=== PATIENT | male | born 1995 | race African-American/Black ===

== ENCOUNTER 2024-10-10 12:23 | Emergency (ER) | payer OTHER, SELFPAY ==
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
--- OUTSIDE RECORDS SUMMARY | 2024-10-10 12:25 | XMS_ITS | Clinical Summary ---
Author Organization [address] lto Address [address] [place] [address] Care Team Providers Care Certified Art Therapist Name Role Phone Abner Lobo MD Primary Care Provider [phone] Allergies Active Allergy Reactions Criticality Noted Date Comments Erythromycin Medications DULoxetine (CYMBALTA) 30 mg capsuleIndicati ons:Anxiety Take 1 capsule (30 mg total) by mouth daily 30 capsule 2 10/07/2019 Active Active Problems No known active problems Immunizations Immunization Administration Dates Next Due Influenza, Unspecified 05/22/2019(Deferr ed: Patient Refused),05/22/2018(Deferred: Patient Refused) Family History Medical History Relation Name Comments Cancer Mother Hypertension Mother Relation Name Status Comments Mother Alive Social History Tobacco Use Types Packs/Day Years Used Date Smoking Tobacco: Every Day Cigarettes Smokeless Tobacco: Never Comments:1/2 a pack a week Alcohol Use Standard Drinks/Week Comments Not Currently 0 (1 standard drink = 0.6 oz pur e alcohol) PHQ-2 Answer Date Recorded PHQ-2 Total Score (If total score is 3 or more points, staff should administer the PHQ-9) 0 10/07/2019 Personal Safety Answer Date Recorded Getting School Help Needed Not on file 07/16 Sex and Gender Information Value Date Recorded Sex Assigned at Not on file 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 Gender Identity Not on file Sexual Orientation Not on file Obstetrics History Last Filed Vital Signs Vital Sign Reading Time Taken Comments Blood Pressure 122/64 10/10/2023 2:41 PM CDT Pulse 76 10/10/2023 2:41 PM CDT Temperature 37.2 C (98.9 F) 10/10/2023 2:41 PM CDT Respiratory Rate 16 10/10/2023 2:41 PM CDT Oxygen Saturation 98% 10/10/2023 2:41 PM CDT Inhaled Oxygen Concentration - - Weight 64 kg (141 lb) 10/10/2023 2:41 PM CDT Height 182.9 cm (6') 10/10/2023 2:41 PM CDT Body Mass Index 19.12 10/10/2023 2:41 PM CDT Plan of Treatment Health Maintenance Due Date Last Done Comments Hepatitis C Screening 1995 DTaP/Tdap/Td Vaccine (6 - Tdap) 05/04/2007 05/03/2007, 01/26/2001, 08/05/1996, Additional history exists Pneumococcal vaccine <65 (1 of 2 - PCV) 2014 Depression Screening 10/06/2020 10/07/2019 Regular Well Visit/Exam 18-64 10/06/2020 10/07/2019 Influenza Vaccine (Season Ended) 2025 03/04/2008, 05/03/2007, 03/19/2004 Hepatitis B Screening Completed 1995 , 1995, 1995 Varicella Vaccines Discontinued 12/09/2008, 04/25/1996 HPV Vaccines Aged Out No longer eligi ble based on patient's age to complete this topic Insurance [facility] CHOICE PLUS [facility] [id number] Care Teams Certified Art Therapist Relationship Specialty Start Date End Date Abner Lobo MD [address] [place] [address] PCP - General Family Medicine 10/07/19
--- OUTSIDE RECORDS SUMMARY | 2024-10-10 12:25 | XMS_ITS | Referral Summary ---
Author Organization [address] lto Address [address] [place] [address] Care Team Providers Care Instrumentation Instructor Name Role Phone Abner Lobo MD Primary Care Provider [phone] Allergies Active Allergy Reactions Criticality Noted Date Comments Erythromycin Medications DULoxetine (CYMBALTA) 30 mg capsuleIndicati ons:Anxiety Take 1 capsule (30 mg total) by mouth daily 30 capsule 2 10/07/2019 Active Active Problems No known active problems Immunizations Immunization Administration Dates Next Due Influenza, Unspecified 05/22/2019(Deferr ed: Patient Refused),05/22/2018(Deferred: Patient Refused) Social History Tobacco Use Types Packs/Day Years [...] on file 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
--- OUTSIDE RECORDS SUMMARY | 2024-10-10 12:25 | XMS_ITS | Clinical Summary ---
Author Organization [facility] Address [address] [place] [address] Phone Care Team Providers Care Granulator Operator Name Role Phone Provider, None Primary Care Provider Unavailabl e Allergies Active Allergy Reactions Criticality Noted Date Comments Erythromycin Hives 07/15/2024 Medications No known medications Encounters Date Type Department Care Team Description 07/15/2024 10:24 PM CHIEF DIETITIAN - 07/16/2024 1:45 AM CHIEF DIETITIAN [facility] [address] [place] [address] Abner Pickering MD Right ankle sprain Discharge Disposition: Discharged to home or Selfcare 07/15/2024 Travel from Last 3 Months Social History Tobacco Use Types Packs/Day Years Used Date Smoking Tobacco: Never Assessed Sex and Gender Information Value Date Recorded Sex Assigned at Not on file Legal Sex Male 9:19 PM CDT Gender Identity Not on file Sexual Orientation Not on file Last Filed Vital Signs Vital Sign Reading Time Taken Comments Blood Pressure 131/78 07/16/2024 1:30 AM CHIEF DIETITIAN Pulse 103 07/15/2024 10:28 PM CHIEF DIETITIAN Temperature 36.6 C (97.8 F) 07/15/2024 10:30 PM CHIEF DIETITIAN Respiratory Rate 17 07/15/2024 10:30 PM CHIEF DIETITIAN Oxygen Saturation 98% 07/15/2024 10:28 PM CHIEF DIETITIAN Inhaled Oxygen Concentration - - Weight 67.1 kg (148 lb) 07/15/2024 10:30 PM CHIEF DIETITIAN Height 182.9 cm (6') 07/15/2024 10:30 PM CHIEF DIETITIAN Body Mass Index 20.07 07/15/2024 10:30 PM CHIEF DIETITIAN Plan of Treatment Health Maintenance Due Date Last Done Comments Hepatitis C Virus (HCV) Screening 1995 TdaP Immunization 1995 Influenza Immunization (#1) 2024 03/0 07/2009, 07/22/2009, 03/04/2008, Additional history exists SARS-COV-2 Immunization ( season) 2024 Respiratory Syncytial Virus (RSV) Immunization (Adult) (1 - 1-dose 75+ series) 2070 Hepatitis B Immunization Completed 996, 1995, 1995 DTaP/Tdap/Td Immunization Discontinued 2006, 01/26/2001, 08/05/1996, Additional history exists Meningococcal Immunization (ACWY) Aged Out 12/09/2008 No longer eligible based on patient's age to complete this topic Pneumococcal Immunization Combined Aged Out No longer eligible based on patient's age to complete this topic Rotavirus Immunization Aged Out No lo nger eligible based on patient's age to complete this topic Procedures Procedure Name Priority Date/Time Associated Diagnosis Comments XR ANKLE 3 OR MORE VIEWS RIGHT STAT 07/16/2024 12:35 AM CHIEF DIETITIAN from Last 3 Months Results * XR ANKLE 3 OR MORE VIEWS RIGHT (07/16/2024 12:35 AM CHIEF DIETITIAN) Anatomical Region Laterality Modality LOWER EXTREMITY, ankle Right Digital R adiography 07/16/2024 12:4 2 AM CHIEF DIETITIAN Impressions 07/16/2024 12:44 AM CHIEF DIETITIAN IMPRESSION: No acute osseous abnormality. Narrative 07/16/2024 12:44 AM CHIEF DIETITIAN EXAM DESCRIPTION: XR ANKLE 3 OR MORE VIEWS RIGHT REASON FOR STUDY: c/o right ankle pain and swelling x 5 days. Pt rolling his ankle after standing up from a sitting position for a while. No prior fx or surgery. TECHNIQUE: 3 radiographic view(s) of the right ankle . COMPARISON: None FINDINGS: BONES/JOINTS: There is no acute fracture, malalignment or osseous abnormality. The joint spaces are normal. SOFT TISSUES: Within normal limits. THIS IS AN ELECTRONICALLY VERIFIED FINAL REPORT 07/16/2024 12:42 AM - Electronically signed by Jad Navarro M.D. KH: MATI Report ID: [id number] Reading Location: [id number] Procedure Note Jad Navarro MD - 07/16/2024 EXAM DESCRIPTION: XR ANKLE 3 OR MORE VIEWS RIGHT REASON FOR STUDY: c/o right ankle pain and swelling x 5 days. Pt rolling his ankle after standing up from a sitting position for a while. No prior fx or surgery. TECHNIQUE: 3 radiographic view(s) of the right ankle . COMPARISON: None FINDINGS: BONES/JOINTS: There is no acute fracture, malalignment or osseous abnormality. The joint spaces are normal. SOFT TISSUES: Within normal limits. THIS IS AN ELECTRONICALLY VERIFIED FINAL REPORT 07/16/2024 12:42 AM - Electronically signed by Jad Navarro M.D. KH: MATI Report ID: [id number] Reading Location: [id number] IMPRESSION: No acute osseous abnormality. Abner Pickering MD IMG DIAGNOSTIC ORDERABLES Final Result from Last 3 Months Insurance [employer] Care Teams Granulator Operator Relationship Specialty Start Date End Date Provider, None [place] PCP - General 07/15/24
[2024-10-10 12:30] VITALS: BP 119/78; PULSE 108; RESP 16; TEMP 36.4; O2SAT 98
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
[2024-10-10] MEDS: ONDANSETRON HCL ODT 4 MG TABLET PO (14:12)
[2024-10-10 14:45] VITALS: BP 124/86; PULSE 76; RESP 18; TEMP 36.8; O2SAT 97
--- OUTSIDE RECORDS SUMMARY | 2024-10-10 15:05 | XMS_ITS | Clinical Summary ---
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
--- OUTSIDE RECORDS SUMMARY | 2024-10-10 15:05 | XMS_ITS | Referral Summary ---
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 [address] [place] [address] [facility] [id number] Care Teams Quiller Tender Relationship Specialty Start Date End Date Abner Lobo MD [address] [place] [address] PCP - General Family Medicine 10/07/19
--- OUTSIDE RECORDS SUMMARY | 2024-10-10 15:05 | XMS_ITS | Clinical Summary ---
Author Organization [facility] Address [address] [address] Phone Care Team Providers Care Gang Leader Name Role Phone Provider, None Primary Care Provider Unavailabl e Allergies Active Allergy Reactions Criticality Noted Date Comments Erythromycin Hives 07/15/2024 Medications No known medications Encounters Date Type Department Care Team Description 07/15/2024 10:24 PM SHUTTLE HAND - 07/16/2024 1:45 AM SHUTTLE HAND [facility] [address] [place] [address] Abner Pickering MD Right ankle [...] Comments Blood Pressure 131/78 07/16/2024 1:30 AM SHUTTLE HAND Pulse 103 07/15/2024 10:28 PM SHUTTLE HAND Temperature 36.6 C (97.8 F) 07/15/2024 10:30 PM SHUTTLE HAND Respiratory Rate 17 07/15/2024 10:30 PM SHUTTLE HAND Oxygen Saturation 98% 07/15/2024 10:28 PM SHUTTLE HAND Inhaled Oxygen Concentration - - Weight 67.1 kg (148 lb) 07/15/2024 10:30 PM SHUTTLE HAND Height 182.9 cm (6') 07/15/2024 10:30 PM SHUTTLE HAND Body Mass Index 20.07 07/15/2024 10:30 PM SHUTTLE HAND Plan of Treatment Health Maintenance Due Date [...] MORE VIEWS RIGHT STAT 07/16/2024 12:35 AM SHUTTLE HAND from Last 3 Months Results * XR ANKLE 3 OR MORE VIEWS RIGHT (07/16/2024 12:35 AM SHUTTLE HAND) Anatomical Region Laterality Modality LOWER EXTREMITY, ankle Right Digital R adiography 07/16/2024 12:4 2 AM SHUTTLE HAND Impressions 07/16/2024 12:44 AM SHUTTLE HAND IMPRESSION: No acute osseous abnormality. Narrative 07/16/2024 12:44 AM SHUTTLE HAND EXAM DESCRIPTION: XR ANKLE 3 OR MORE [...] Jad Navarro M.D. KH: MATI Report ID: [id number] Reading Location: [id number] Procedure Note Jad Navarro MD - 07/16/2024 [...] Jad Navarro M.D. KH: MATI Report ID: [id number] Reading Location: [id number] IMPRESSION: No acute osseous abnormality. Abner Pickering MD IMG DIAGNOSTIC ORDERABLES Final Result from Last 3 Months Insurance [employer] Care Teams Gang Leader Relationship Specialty Start Date End Date Provider, None [place] PCP - General 07/15/24
== END 2024-10-10 15:00 | disposition home or self-care (01) ==
PROVIDERS: Emergency Provider Physician Assistant
DX: S50.12XA Contusion of left forearm, initial encounter (principal); S80.11XA Contusion of right lower leg, initial encounter; V53.5XXA Driver of pick-up truck or van injured in collision with car, pick-up truck or van in traffic accident, initial encounter
CPT/HCPCS: 73090; 73590; 99284; A9270